=== PATIENT | male | born 1965 | race Caucasian/White ===

== ENCOUNTER 2020-01-04 14:49 | Emergency (ER) | payer BC ==
[~2020-01-04] VITALS: Ht 175.3 cm; Wt 78.2 kg
[2020-01-04 14:54] VITALS: TEMP 98.4
[2020-01-04] MEDS ORDERED: FLOMAX 0.40.4 MG/CAP PO (15:00)
[2020-01-04] MEDS ORDERED: CEPHALEXIN250 M1 PO (15:00)
[2020-01-04] MEDS ORDERED: PYRIDIUM 100MG100 MG PO (15:01)
[2020-01-04 15:44] LABS: COLLECTION METHOD CLEAN CATCH
[2020-01-04 16:02] LABS: MUCOUS Present /lpf; PH 6 (5-8); SQUAMOUS EPITHELIAL 0-2 /hpf; URINE APPEARANCE Clear; URINE BACTERIA None Seen /hpf; URINE BILIRUBIN Negative (NEGATIVE); URINE BLOOD 1+ (NEGATIVE); URINE COLOR Amber; URINE GLUCOSE Negative (NEGATIVE); URINE KETONE Negative (NEGATIVE); URINE LEUKOCYTE ESTERASE Negative (NEGATIVE); URINE NITRATE Positive (NEGATIVE); URINE PROTEIN(semi-quant) 1+ (NEGATIVE); URINE RBC 20-50 /hpf; URINE UROBILINOGEN >=4.0 mg/dL (NEGATIVE)
[2020-01-04] MEDS ORDERED: CIPRO 500MG TA500 MG PO (16:54)
[2020-01-04 17:08] VITALS: BP 123/74; PULSE 63
== END 2020-01-04 17:15 | disposition home or self-care (01) ==
LOC: COL.ER 14:49
PROVIDERS: Emergency Medicine
DX: R33.9 Retention of urine, unspecified (principal); N40.1 Benign prostatic hyperplasia with lower urinary tract symptoms